=== PATIENT | male | born 1975 | race Caucasian/White ===

== ENCOUNTER 2024-02-13 08:02 | Outpatient (CLI) | payer BC | END 2024-02-13 08:03 | disposition home or self-care (01) | LOC: SCSMRI 08:02 | PROVIDERS: ATTEND Family Medicine | DX: R93.2 Abnormal findings on diagnostic imaging of liver and biliary tract (principal); K76.0 Fatty (change of) liver, not elsewhere classified | CPT/HCPCS: 74183 ==